=== PATIENT | male | born 1980 | race Caucasian/White ===

== ENCOUNTER 2024-07-25 12:09 | Emergency (ER) | payer MEDICAID ==
[2024-07-25 12:27] LABS: BASOPHILS ABSOLUTE AUTO 0.03 K/uL (0.00-0.10); BASOPHILS PERCENT AUTO 0.4 % (0.1-1.3); EOSINOPHILS ABSOLUTE AUTO 0.03 K/uL (0.00-0.40); EOSINOPHILS PERCENT AUTO 0.4 % (0.0-5.4); HEMATOCRIT 39.4 % (38.4-49.7); HEMOGLOBIN 14.4 g/dL (12.9-16.9); IMMATURE GRAN PERCENT AUTO 0.3 % (0.0-0.7); LYMPHOCYTES PERCENT AUTO 42.2 % (11.4-47.7); MEAN CORPUSCULAR HEMOGLOBIN 34.2 pg (31.6-35.5); MEAN CORPUSCULAR HGB CONC 36.5 g/dL (31.6-35.5); MEAN CORPUSCULAR VOLUME 93.6 fL (81.4-99.0); MONOCYTES ABSOLUTE AUTO 0.54 K/uL (0.20-0.90); MONOCYTES PERCENT AUTO 7.9 % (3.3-12.6); NEUTROPHILS ABSOLUTE AUTO 3.35 K/uL (1.0-7.6); NEUTROPHILS PERCENT AUTO 48.8 % (40.0-78.1); PLATELET COUNT,PLT 204 K/uL (130-375); RED BLOOD CELL COUNT 4.21 M/uL (4.14-5.76); WHITE BLOOD CELL COUNT,WBC 6.9 K/uL (3.2-11.0)
[2024-07-25 12:29] LABS: IMMATURE GRAN ABSOLUTE AUTO 0.02 K/uL (0.00-0.23)
[2024-07-25 12:48] LABS: A/G RATIO 1.3 (1.2-2.2); ALANINE AMINOTRANSFERASE,ALT 25 U/L (12-78); ALKALINE PHOSPHATASE 90 U/L (46-116); ASPARTATE AMNIOTRANSFERASE,AST 31 U/L (15-37); BILIRUBIN TOTAL 1.1 mg/dL (0.2-1.0); BLOOD UREA NITROGEN,BUN 15 mg/dL (7-18); CALCIUM 8.9 mg/dL (8.5-10.1); CARBON DIOXIDE,CO2 26 mmol/L (21-32); CHLORIDE,CL 106 mmol/L (100-108); CREATININE 0.9 mg/dL (0.8-1.3); ESTIMATED GFR 109 mL/min (>60); GLUCOSE RANDOM 114 mg/dL (74-106); POTASSIUM,K 3.4 mmol/L (3.6-5.2); PROTEIN TOTAL,TP 7.1 g/dL (6.4-8.2); SODIUM,NA 143 mmol/L (140-148)
[2024-07-25 12:52] LABS: AMPHETAMINES SCREEN, URINE PRESUMPTIVE POSITIVE (NEGATIVE); BARBITURATE SCREEN,URINE NEGATIVE (NEGATIVE); BENZODIAZEPINES SCREEN,URINE NEGATIVE (NEGATIVE); METHADONE SCREEN, URINE NEGATIVE (NEGATIVE); METHAMPHETAMINES SCREEN, URINE PRESUMPTIVE POSITIVE (NEGATIVE); OXYCODONE SCREEN,URINE NEGATIVE (NEGATIVE); PROPOXYPHENE SCREEN,URINE NEGATIVE (NEGATIVE); THC SCREEN,URINE 50 NG/ML NEGATIVE (NEGATIVE)
[2024-07-25 12:53] LABS: ANION GAP 14.4 mmol/L (5.0-14.0)
[2024-07-25] MEDS: Sodium Chloride 0.9% 1,000 ML IV ONE (14:23)
== END 2024-07-26 09:13 | disposition home or self-care (01) ==
LOC: JP.ED 12:09
DX: T46 Poisoning by, adverse effect of and underdosing of agents primarily affecting the cardiovascular system (principal); T43.594A Poisoning by other antipsychotics and neuroleptics, undetermined, initial encounter; M79.641 Pain in right hand; Z79.899 Other long term (current) drug therapy
CPT/HCPCS: 36415; 73120; 80053; 80143; 80179; 80305; 80307; 85025; 93005; 93010; 96360; 96361; 99285; J7030

== ENCOUNTER 2024-11-09 10:43 | Emergency (ER) | payer MEDICAID | END 2024-11-09 14:09 | disposition home or self-care (01) | LOC: JP.ED 10:43 | DX: S99.921A Unspecified injury of right foot, initial encounter (principal); F17.200 Nicotine dependence, unspecified, uncomplicated; Z86.16 Personal history of COVID-19; Z59.00 Homelessness unspecified; X83.8XXA Intentional self-harm by other specified means, initial encounter; Y92.149 Unspecified place in prison as the place of occurrence of the external cause | CPT/HCPCS: 73600-RT; 73620-RT; 99282; 99283 ==